=== PATIENT | female | born 1950 | race African-American/Black ===

== ENCOUNTER 2020-05-27 20:25 | Inpatient (IN) | payer MEDICARE, BC ==
[~2020-05-27] VITALS: Ht 167.6 cm; Wt 69.9 kg
[2020-05-27] MEDS ORDERED: ASPIRIN 81MG TABLET PO ONE (21:15)
[2020-05-27 21:48] LABS: BASOPHILS % 0.6 % (0.0-2.0); EOSINOPHILS % 1.2 % (0.0-5.0); HEMATOCRIT. 35.1 % (36.0-48.0); HEMOGLOBIN. 11.6 g/dL (12.0-16.0); LYMPHOCYTES % 25.2 % (20.0-50.0); MEAN CORPUSCULAR VOLUME 87.6 fL (81.0-99.0); MEAN PLATELET VOLUME 9.1 fl (7.4-10.4); MONOCYTES % 6.6 % (2.0-8.0); NEUTROPHILS % 66.4 % (40.0-76.0); PLATELET 224 x1000/uL (130-400); RED BLOOD CELL COUNT 4.01 mill/uL (4.2-5.4); RED CELL DISTRIBUTION WIDTH 13.4 % (11.6-14.6)
[2020-05-27 21:50] LABS: CHLORIDE 110 mEq/L (98-107)
[2020-05-27 21:53] LABS: PARTIAL THROMBOPLASTIN TIME 26.9 sec (23.4-31.0); PROTHROMBIN TIME 10.2 sec (9.6-11.0)
[2020-05-28] MEDS: ASPIRIN 81MG TABLET PO SCH (08:52)
[2020-05-28] MEDS ORDERED: IBUPROFEN 600MG TABLET PO PRN (09:30)
[2020-05-28] MEDS ORDERED: ACETAMINOPHEN 325MG TABLET PO PRN (12:00)
[2020-05-28] MEDS: LOSARTAN POTASSIUM 50 MG TABLET PO SCH (12:36)
[2020-05-28] MEDS ORDERED: ONDANSETRON HCL 4MG/2ML INJ IV PRN (19:45)
[2020-05-28 20:00] VITALS: BP 139/66
[2020-05-28 23:51] LABS: CLARITY URINE CLEAR (CLEAR); COLOR URINE YELLOW (YELLOW); KETONES URINE NEGATIVE (NEGATIVE); LEUKOCYTE ESTERASE URINE 1+ (NEGATIVE); NITRITE URINE NEGATIVE (NEGATIVE); OCCULT BLOOD URINE NEGATIVE (NEGATIVE); PH URINE 7.5 (4.5-8.0); PROTEIN URINE NEGATIVE (NEGATIVE); SPECIFIC GRAVITY URINE 1.013 (1.005-1.030)
[2020-05-29] VITALS: BP 132/58
[2020-05-29] MEDS ORDERED: FAMO-135 MT (00:32)
[2020-05-29] MEDS ORDERED: BACL-141 MT (00:32)
[2020-05-29] MEDS ORDERED: LOSA50TA41 MT (00:32)
[2020-05-29] MEDS ORDERED: MELO-104 MT (00:32)
[2020-05-29] MEDS ORDERED: OMEP2.5S2 PO (00:32)
[2020-05-29 04:00] VITALS: BP 111/62
[2020-05-29 08:00] VITALS: BP 122/64
[2020-05-29] MEDS: ASPIRIN 81MG TABLET PO SCH (08:34)
[2020-05-29] MEDS: LOSARTAN POTASSIUM 50 MG TABLET PO SCH (08:34)
[2020-05-29 12:00] VITALS: BP 139/78
[2020-05-29] MEDS: ACETAMINOPHEN 500MG TABLET PO NR ×2 (13:59→15:00)
[2020-05-29 15:12] VITALS: BP 139/71
== END 2020-05-29 16:20 | disposition home or self-care (01) | DRG 552 ==
LOC: ER 20:25 → 8WST 23:44 → ENRESERV 05-28 17:11
PROVIDERS: ADMIT Internal Medicine; ATTEND Internal Medicine
DX: M47.812 Spondylosis without myelopathy or radiculopathy, cervical region (principal); M54.2 Cervicalgia; I16.0 Hypertensive urgency; I10 Essential (primary) hypertension; E87.8 Other disorders of electrolyte and fluid balance, not elsewhere classified; Z88.2 Allergy status to sulfonamides; Z79.899 Other long term (current) drug therapy
CPT/HCPCS: 36415; 71045; 80053; 81003; 83880; 84484; 85025; 93005; 97161; 99285